=== PATIENT | female | born 1985 | race Caucasian/White ===

== ENCOUNTER 2019-10-15 05:29 | Day surgery (SDC) | payer MEDICAID ==
[2019-10-08 11:05] LABS: BASOPHILS # (AUTO) 0.1 X10'3 (0-0.2); EOSINOPHILS # (AUTO) 0.3 X10'3 (0-0.9); MEAN PLATELET VOLUME 7.8 FL (7.4-10.4); MONOCYTES # (AUTO) 0.5 X10'3 (0-0.9)
[2019-10-08 11:06] LABS: EOSINOPHILS % (AUTO) 4.6 % (0-6); LYMPHOCYTES # (AUTO) 1.4 X10'3 (1.1-4.8); LYMPHOCYTES % (AUTO) 23.4 % (21-51); MEAN CORPUSCULAR HEMOGLOBIN 28.9 PG (27.0-31.0); MEAN CORPUSCULAR HGB CONC 33.1 g/dL (33.0-36.5); MEAN CORPUSCULAR VOLUME 87.4 FL (78-98); MONOCYTES % (AUTO) 7.8 % (2-12); NEUTROPHILS # (AUTO) 3.8 X10'3 (1.8-7.7); NEUTROPHILS % (AUTO) 63.2 % (42-75); PRE OP HEMATOCRIT 41.2 % (35.0-45.0); PRE OP HEMOGLOBIN 13.6 g/dL (12.0-16.0); PRE OP PLATELET COUNT 283 X10'3 (140-440); RED BLOOD COUNT 4.72 X10'6 (4.20-5.60); RED CELL DISTRIBUTION WIDTH 13.9 % (11.5-14.5)
[2019-10-08 11:16] LABS: CLARITY,URINE CLEAR (Clear); COLOR,URINE YELLOW (Yellow); GLUCOSE, URINE NEGATIVE (Neg); KETONES,URINE NEGATIVE (Neg); LEUKOCYTE ESTERASE ,URINE NEGATIVE (Neg); NITRITES, URINE NEGATIVE (Neg); OCCULT BLOOD,URINE NEGATIVE (Neg); PROTEIN,URINE NEGATIVE (Neg); UROBILINOGEN,URINE 0.2 E.U/dL (0.2-1.0)
[2019-10-08 11:17] LABS: PRE OP PROTIME 10.3 SECONDS (9.0-12.0)
[2019-10-08 11:21] LABS: UA COLLECTION TYPE CLN CATCH MIDSTREAM
[2019-10-08 11:21] LABS: ALBUMIN/GLOBULIN RATIO 1.1 (1.1-1.5); ALKALINE PHOSPHATASE 59 IU/L (46-116); BLOOD UREA NITROGEN 8 MG/DL (7-18); BUN/CREATININE RATIO 8.3 (6.6-38.0); CALCIUM 8.9 MG/DL (8.5-10.1); CHLORIDE 105 MMOL/L (99-107); CREATININE 0.96 MG/DL (0.40-0.90); PRE OP ALT 14 U/L (30-65); PRE OP ANION GAP 6 (8-16); PRE OP AST 13 U/L (10-37); PRE OP BILIRUB, TOTAL 0.4 MG/DL (0.0-1.0); PRE OP GLUCOSE 91 MG/DL (70-104); PRE OP POTASSIUM 4.1 MMOL/L (3.4-5.1); PRE OP SODIUM 139 MMOL/L (135-145); TOTAL CARBON DIOXIDE 28.2 MMOL/L (24-32); TOTAL PROTEIN 7.8 G/DL (6.4-8.2); eGFR 67 ML/MIN
[2019-10-08 11:30] LABS: HCG SERUM QL NEGATIVE
[2019-10-15] VITALS (11 sets, daily range): BP systolic 111–121; BP diastolic 57–69
[~2019-10-15] VITALS: Ht 165.1 cm; Wt 71.8 kg
[~2019-10-15 05:29] MED LIST: ASPI1TAB2 PO; ringers solution, lacted 1,000 ML IV SCH
[2019-10-15] MEDS ORDERED: cefoxitin sod inj 2,000 MG in normal saline 100ml IV soln 100 ML IV ONE (05:30)
[2019-10-15] MEDS ORDERED: famotidine 20mg tablet PO ONE (05:30)
[2019-10-15] MEDS ORDERED: BUPIVAcaine/PF 2.5 mg/ml (0.25%) 30ml vial ONE (06:56)
[2019-10-15] MEDS ORDERED: ringers solution, lacted 1,000 ML IV SCH (07:12)
[2019-10-15] MEDS ORDERED: meperidine/PF 25mg/ml syringe IV PRN ×3 (07:15)
[2019-10-15] MEDS ORDERED: proCHLORperazine 10 MG/2 ml inj IV PRN (07:15)
[2019-10-15] MEDS ORDERED: ondansetron/PF 4mg/2ml inj IV PRN (07:15)
[2019-10-15] MEDS ORDERED: morphine 4 MG/ML inj SYRINge IV PRN (07:15)
[2019-10-15] MEDS ORDERED: morphine 2 MG/ML inj. syringe IV PRN (07:15)
[2019-10-15] MEDS ORDERED: sevoflurane 250ml liquid IH ONE (07:16)
[2019-10-15] MEDS ORDERED: fentaNYL/PF 50MCG/1 ML 2ML syringe ONE (07:21)
[2019-10-15] MEDS ORDERED: LIDOcaine 2% (20mg/ml) 5ml vial ONE (07:22)
[2019-10-15] MEDS ORDERED: midazolam 2 mg/2 ml injection ONE (07:22)
[2019-10-15] MEDS ORDERED: propofol inj 20 ML IV ONE (07:22)
[2019-10-15] MEDS ORDERED: ondansetron/PF 4mg/2ml inj ONE (07:29)
[2019-10-15] MEDS ORDERED: dexamethasone sod phosphate 4mg/ml inj. ONE (07:29)
[2019-10-15] MEDS ORDERED: clindamycin phosphate 40gm vag cream ONE (07:38)
--- NOTE | 2019-10-15 07:55 | NUR ---
Received from OR via BED , accompanied by Anesthesiologist DR RESTREPO and report given by Anesthesiolgist. PATIENT WAKING UP, DENIES, V/S WNL, NEUROVASCULAR CHECKS INTACT, 20G PIV LUE, SCD ON, PERIPAD WITH SCANT DRAINAGE CDI
--- NOTE | 2019-10-15 09:15 | NUR ---
PATIENT A&OX4, DENIES PAIN, V/S WNL, NEUROVASCULAR CHECKS INTACT, 20G PIV LUE D/C WITH NO COMPLICATIONS OBSERVED, SCD OFF, FRESH KARLA PAD GIVEN TO PATIENT. I HAVE REVIEWED D/C INSTRUCTIONS WITH PATIENT AND FAMILY AND THEY HAVE VERBALIZED UNDERSTANDING. SCRIPT GIVEN FOR PAIN AND OINTMENT, PATIENT D/C HOME WITH FAMILY TO TRANSPORT AND ALL BELONGINGS..
== END 2019-10-15 09:15 | disposition home or self-care (01) ==
LOC: PAS 05:29
PROVIDERS: ATTEND Obstetrics & Gynecology
DX: N75.0 Cyst of Bartholin's gland (principal); N75.1 Abscess of Bartholin's gland; Z79.899 Other long term (current) drug therapy; Z79.01 Long term (current) use of anticoagulants; Z11.59 Encounter for screening for other viral diseases; Z98.890 Other specified postprocedural states; Z88.0 Allergy status to penicillin
CPT/HCPCS: 36415; 56440; 80053; 81003; 82948; 84703; 85025; 85610; 85730; J0694; J1100; J2001; J2250; J2405; J2704; J3010; J3490; J7120; U0003; A4618; A7000